=== PATIENT | female | born 2000 | race Caucasian/White ===

== ENCOUNTER 2021-05-15 16:41 | Emergency (ER) | payer OTHER ==
[~2021-05-15] VITALS: Ht 167.6 cm; Wt 59.0 kg
[2021-05-15 16:52] VITALS: BP 117/69
--- NOTE | 2021-05-15 17:01 | NUR ---
20 YEAR OLD FEMALE COMPLAINS OF NONRADIATING CHEST PAIN X2 DAYS. PT STATES PAIN IS ON/OFF AND IS PRESSURE FEELING, AND WHEN PRESENT HAS SOB. PT CURRENTLY DENIES N/V/D, DENIES SOB. PT AOX4, BREATHING EVEN AND UNLABORED, SKIN WARM AND DRY. BED IN LOWEST POSITION, LOCKED, BED RAIL UPX1. PMH - CARDIOMEGALY ALLERGIES - AMOXICILLIN, CINNAMON
[2021-05-15 17:59] LABS: BASOPHILS % (AUTO) 0.3 % (0.0-2.0); EOSINOPHILS % (AUTO) 0.1 % (0.0-4.0); HEMATOCRIT 41.3 % (36-48); HEMOGLOBIN 13.9 g/dL (12.0-16.0); LYMPHOCYTES # (AUTO) 0.7 K/uL (2.5-16.5); LYMPHOCYTES % (AUTO) 5.9 % (20.5-51.1); MEAN CORPUSCULAR HEMOGLOBIN 31 pg (27-31); MEAN CORPUSCULAR HGB CONC 34 g/dL (33-37); MEAN CORPUSCULAR VOLUME 93.1 fL (80-94); MONOCYTES # (AUTO) 0.8 K/uL (0.8-1.0); MONOCYTES % (AUTO) 6.7 % (1.7-9.3); PLATELET COUNT (AUTO) 185 K/uL (140-450); RED BLOOD CELL COUNT(AUTO) 4.44 MIL/uL (4.20-5.40); RED CELL DISTRIBUTION WIDTH 13.3 % (11.6-13.7); WHITE BLOOD COUNT (AUTO) 12.6 K/uL (4.5-11.0)
[2021-05-15 18:14] LABS: ALBUMIN 4.3 g/dL (3.4-5.0); ANION GAP 8.9 (8-16); CARBON DIOXIDE 30.5 mmol/L (21-32); CREATININE 0.9 mg/dL (0.6-1.3); POTASSIUM 4.4 mmol/L (3.5-5.1); TOTAL BILIRUBIN 0.5 mg/dL (0.0-1.0)
--- NOTE | 2021-05-15 19:13 | NUR ---
REPORT GIVEN TO JENNIFER DEXTER, TRANSFER OF CARE AT THIS TIME. PT ALERT AND AWAKE, BREATHING EVEN AND UNLABORED, NO DISTRESS NOTED. ALL NEEDS MET AT THIS TIME.
[2021-05-15 19:31] VITALS: BP 101/62
[2021-05-15] MEDS ORDERED: IBUP-2213 PO (19:33)
[2021-05-15] MEDS ORDERED: IBUPROFEN 600 MG TAB PO ONE (19:35)
[2021-05-15] MEDS ORDERED: IBUPROFEN 600 MG TAB ONE (19:37)
--- NOTE | 2021-05-15 19:45 | NUR ---
d/c with vss. d/c education given. opportunity to ask questions given and answered. copy labs and diagnostic results given. rx motrin given.
== END 2021-05-15 19:45 | disposition home or self-care (01) ==
LOC: MED 16:41
DX: R07.9 Chest pain, unspecified (principal)
CPT/HCPCS: 36415; 71045; 76705; 80053; 81002; 81025; 83690; 84484; 85025; 93005; 99285